=== PATIENT | female | born 1985 | race Caucasian/White ===

== ENCOUNTER 2019-01-11 20:12 | Emergency (ER) | payer OTHER ==
[~2019-01-11] VITALS: Ht 165.1 cm; Wt 93.4 kg
[~2019-01-11 20:12] MED LIST: ASPIRIN325; BODY; EXCEDRIN BACK; HYDROCODON-ACE1 EACH PO; LEVAQUIN 500 M500 MG PO; LORTAB PO; NORCO 5-325 TA1 EACH PO; RELAFEN500 MG PO; TRAMADOL 50 MG50 MG PO
[2019-01-11 21:11] LABS: ABSOLUTE NEUTROPHILS 6.2 thou/uL (1.4-8.2); BASOPHILS 0.6 % (0.0-2.0); EOSINOPHILS 1.8 % (0.0-3.0); HEMOGLOBIN 14.5 gm/dL (12.0-15.0); LYMPHOCYTES 27.7 % (24.0-44.0); MCH 32.7 pg (26.0-34.0); MCHC 34.5 g/dL (28.0-37.0); MCV 94.7 fL (80.0-100.0); MONOCYTES 5.6 % (1.0-8.0); PLATELET COUNT 238 thou/uL (150-400); POLYS 64.3 % (36.0-66.0); RBC 4.44 mil/uL (4.20-5.00); RDW 11.7 % (10.5-14.5); WBC 9.6 thou/uL (4.0-11.0)
[2019-01-11 21:33] LABS: ANION GAP 8 mmol/L (7-16); BUN 10 mg/dL (7-18); CHLORIDE 105 mmol/L (98-107); CO2 26 mmol/L (21-32); CREATININE 0.8 mg/dL (0.6-1.0); GLUCOSE 109 mg/dL (74-106); POTASSIUM 4.4 mmol/L (3.5-5.1); SODIUM 139 mmol/L (136-145)
[2019-01-11 21:47] LABS: TROPONIN-I <0.06 ng/mL (<0.06)
[2019-01-11 23:25] VITALS: BP 104/66
--- NOTE | 2019-01-12 14:45 | EKG ---
[address] [address] [place] [address] ELECTROCARDIOGRAM REPORT Name: JEAN-PAUL AVELAR Room #: DEP [facility]ENTERBernice[facility] [id number] Admission: 01/11/19 Attend Phys: Discharge: 01/11/19 Date of : 87 Report #: [id number] THIS REPORT FOR: //name// [facility] ED Test Date: 2019-01-11 Test Time: 20:23:09 Pat Name: JEAN-PAUL AVELAR Department: Room: Gender: F [employer]: : [id number] Requested By: Margarita Du Order Number: [id number] MD: Jan Doherty Measurements Intervals [place] Rate: 85 P: 50 OK: 122 QRS: 56 QRSD: 102 T: 22 QT: 367 QTc: 437 Interpretive Statements Sinus rhythm Baseline wander in lead(s) V1 No previous ECG available for comparison Electronically Signed On 01-12-2019 14:45:02 CDT by Jan Doherty [email or web address] <ELECTRONICALLY SIGNED> By: Jan Doherty MD 01/12/19 1445 22 22 Jan Doherty MD /EPI
== END 2019-01-11 23:36 | disposition home or self-care (01) ==
LOC: ER 20:12
PROVIDERS: Emergency Medicine
DX: R07.89 Other chest pain (principal); R06.00 Dyspnea, unspecified; F17.210 Nicotine dependence, cigarettes, uncomplicated; Z98.890 Other specified postprocedural states